=== PATIENT | female | born 1990 | race Two or more races ===

== ENCOUNTER 2020-06-29 07:17 | Emergency (ER) | payer OTHER ==
[~2020-06-29] VITALS: Ht 165.1 cm; Wt 74.8 kg
[2020-06-29 07:21] VITALS: BP 160/83
== END 2020-06-29 09:10 | disposition still patient (30) ==
LOC: EDBD → ER 07:17
DX: O46.8X3 Other antepartum hemorrhage, third trimester (principal); Z3A.28 28 weeks gestation of pregnancy

== ENCOUNTER 2020-06-29 07:25 | Inpatient (IN) | payer OTHER ==
[~2020-06-29] VITALS: Ht 30.5 cm; Wt 0.5 kg
[2020-06-29] MEDS ORDERED: hydrALAZINE HCL 20 MG/ML VL ONE (08:02)
[2020-06-29] MEDS: hydrALAZINE HCL 20 MG/ML VL IV PRN ×3 (08:04→10:14)
[2020-06-29 08:42] LABS: Basophils # (auto) 0.1 10 ^3/uL (0-0.2); Basophils % (auto) 0.4 % (0.0-2.0); Eosinophils # (auto) 0.2 10 ^3/uL (0-0.8); Eosinophils % (auto) 1.3 % (0.0-7.0); Hematocrit 35.4 % (36.0-46.0); Hemoglobin 11.7 g/dL (12.2-16.2); Lymphocytes # (auto) 2.4 10 ^3/uL (0.4-5.4); Lymphocytes % (auto) 14.6 % (10.0-50.0); Mean Corpuscular Hemoglobin 30.1 pg (28.0-32.0); Mean Corpuscular Hgb Conc. 32.9 g/dL (32.0-36.0); Mean Corpuscular Volume 91.4 fL (80.0-100.0); Monocytes # (auto) 1.1 10 ^3/uL (0-1.3); Neutrophils # (auto) 12.4 10 ^3/uL (1.6-8.6); Neutrophils % (auto) 76.7 % (37.0-80.0); Platelet Count (auto) 75 10^3/uL (140-450); Red Blood Cells 3.87 10^6/uL (4.0-5.20); Red Cell Distribution Width 13.5 % (11.8-14.3); White Blood Cell 16.2 10^3/uL (4.4-10.8)
[2020-06-29] MEDS ORDERED: LACT. RINGERS/OXYTOCIN 20UNITS 1,000 ML IV ONE (08:45)
[2020-06-29] MEDS ORDERED: LIDOCAINE 2%HCL (LOCAL ANESTH.) INJ 20ML MDV IJ PRN (08:45)
[2020-06-29] MEDS ORDERED: WITCH HAZEL-GLYCERIN PAD TOP PRN (08:45)
[2020-06-29] MEDS ORDERED: PHISODERM TOP SOLN 240ML BTL TOP PRN (08:45)
[2020-06-29] MEDS ORDERED: DERMOPLAST 60ML BOTTLE TOP PRN (08:45)
[2020-06-29] MEDS ORDERED: LACTATED RINGER'S 1,000 ML IV SCH (08:45)
[2020-06-29] MEDS ORDERED: miSOPROStol 50 MCG per PRE-CUT 1/2 TAB VG PRN (09:00)
[2020-06-29 09:05] LABS: Alcohol, Urine < 3.0 mg/dL (0-10); Amphetamine Screen, Urine NEGATIVE (NEGATIVE); Barbiturate Scree,Urine NEGATIVE (NEGATIVE); Benzodiazephine Screen, Urine NEGATIVE (NEGATIVE); Cannabinoid Screen, Urine NEGATIVE (NEGATIVE); Cocaine Screen, Urine NEGATIVE (NEGATIVE); Opiate Scree,Urine NEGATIVE (NEGATIVE); Phencyclidine Screen, Urine NEGATIVE (NEGATIVE)
[2020-06-29 09:07] LABS: Albumin 2.4 g/dL (3.4-5.0); Calcium 7.9 mg/dL (8.5-10.1)
[2020-06-29 09:08] LABS: INR 1.14 (0.9-1.15); Partial Thromboplastin Time 31.3 sec (23.0-31.2)
[2020-06-29 09:12] LABS: BUN/Creatinine Ratio 21.2; Bilirubin, Total 0.9 mg/dL (0.2-1.0); Total Protein 5.7 g/dL (6.4-8.2); Uric Acid 7.4 mg/dL (2.6-6.0)
[2020-06-29] MEDS ORDERED: MAGNESIUM SULFATE 100 ML IV ONE (10:00)
[2020-06-29] MEDS ORDERED: LORazepam 2MG/ML-1ML VIAL IV ONE (10:00)
[2020-06-29] MEDS ORDERED: MAGNESIUM SULFATE 40MG/ML 1,000 ML IV SCH (10:00)
[2020-06-29] MEDS ORDERED: ceFAZolin 1GM/50ML 50 ML IV SCH (11:00)
[2020-06-30 04:07] LABS: Rubella Antibodies, IgG <0.90 index (Immune >0.99)
[2020-06-30 06:06] LABS: RPR Non Reactive (Non Reactive)
== END 2020-06-29 11:17 | disposition short-term general hospital (02) | DRG 566 ==
LOC: LDRP 07:25 → OBSVTOIN 07:59 → EDBD 07:59
PROVIDERS: ADMIT Obstetrics & Gynecology; ATTEND Obstetrics & Gynecology
DX: O36.4XX0 Maternal care for intrauterine death, not applicable or unspecified (principal); Z3A.25 25 weeks gestation of pregnancy; Z20.828 Contact with and (suspected) exposure to other viral communicable diseases; O14.22 HELLP syndrome (HELLP), second trimester
CPT/HCPCS: 36415; 59025; 76805; 80053; 80307; 84550; 85025; 85362; 85379; 85384; 85610; 85730; 86592; 86703; 86762; 86850; 86900; 86901; 87340; 87426; 96360; 96361; 96365; 96366; 96374; 96375; G0378; J0690

== ENCOUNTER 2020-07-02 19:49 | Emergency (ER) | payer OTHER | END 2020-07-02 21:27 | disposition left against medical advice (07) | LOC: ER 19:49 | DX: I10 Essential (primary) hypertension (principal); Z53.21 Procedure and treatment not carried out due to patient leaving prior to being seen by health care provider ==

== ENCOUNTER → 2021-01-27 | Emergency (ER) | payer MEDICAID, OTHER ==
[~2021-01-27] VITALS: Ht 165.1 cm; Wt 63.5 kg
[2021-01-27 16:27] VITALS: BP 122/84
[2021-01-27 17:01] LABS: Eosinophils # (auto) 0.4 10 ^3/uL (0-0.8); Monocytes # (auto) 0.5 10 ^3/uL (0-1.3); Neutrophils # (auto) 4.9 10 ^3/uL (1.6-8.6); Nucleated Red Blood Cells % 0.1 %
[2021-01-27 17:03] LABS: Basophils # (auto) 0 10 ^3/uL (0-0.2); Basophils % (auto) 0.5 % (0.0-2.0); Eosinophils % (auto) 4.8 % (0.0-7.0); Hematocrit 40.1 % (36.0-46.0); Hemoglobin 13.7 g/dL (12.2-16.2); Lymphocytes % (auto) 33.8 % (10.0-50.0); Mean Corpuscular Hgb Conc. 34.1 g/dL (32.0-36.0); Mean Corpuscular Volume 79.2 fL (80.0-100.0); Monocytes % (auto) 5.4 % (0.0-12.0); Neutrophils % (auto) 55.5 % (37.0-80.0); Platelet Count (auto) 285 10^3/uL (140-450); Red Blood Cells 5.06 10^6/uL (4.0-5.20); Red Cell Distribution Width 15.4 % (11.8-14.3); White Blood Cell 8.9 10^3/uL (4.4-10.8)
[2021-01-27 17:18] LABS: Albumin 3.9 g/dL (3.4-5.0); Calcium 9.4 mg/dL (8.5-10.1); Potassium 3.6 mmol/L (3.5-5.1)
[2021-01-27 17:21] LABS: BUN/Creatinine Ratio 8.6
[2021-01-27 17:32] LABS: Urine Bacteria MOD /hpf (None Seen); Urine Blood Negative /uL (Negative); Urine Hyaline Cast FEW /lpf (0 - 2); Urine Mucus FEW (None Seen); Urine Specific Gravity 1.019 (1.001-1.035); Urine WBC 1 /hpf (0 - 5)
[2021-01-27 17:34] LABS: Bilirubin, Total 0.3 mg/dL (0.2-1.0); Total Protein 8.4 g/dL (6.4-8.2)
== END | disposition home or self-care (01) ==
LOC: ER 16:26
DX: O03.9 Complete or unspecified spontaneous abortion without complication (principal); Z3A.16 16 weeks gestation of pregnancy
CPT/HCPCS: 36415; 76801; 80053; 81001; 84702; 85025; 85049